=== PATIENT | male | born 1995 | race Two or more races ===

== ENCOUNTER 2020-08-26 00:18 | Emergency (ER) | payer OTHER, SELFPAY ==
[2020-08-26] VITALS (15 sets, daily range): BP systolic 123–147; BP diastolic 70–96; PULSE 73–136; RESP 15–20; TEMP 36.7–37.4; O2SAT 97–100; BMI 20.1
--- NOTE | 2020-08-26 00:28 | EKG12_ITS ---
Test Reason : [facility] [place] Blood Pressure : / mmHG Vent. Rate : 118 BPM Atrial Rate : 118 BPM P-R Int : 146 ms QRS Dur : 094 ms QT Int : 350 ms P-R-T Axes : 063 076 063 degrees QTc Int : 490 ms Sinus tachycardia Otherwise normal ECG Confirmed by LYNETTE POSADA, EKTA ([id number]), video editor MELINA LR ([id number]) on 08/30/2020 8:28:51 AM Referred By: BAKARI Confirmed By:EKTA OJEDA MD
[2020-08-26] MEDS: 0.9% Normal Saline 1,000 ML 999 ML IV ×2 (00:48→01:37)
[2020-08-26 00:59] LABS: Absolute Lymphocyte Count 0.54 X10^3/uL (0.83-4.51); Absolute Neutrophil Count 8.9 X10^3/uL (2.0-7.7); Basophil# 0.02 X10^3/uL; Basophil% 0.2 % (0-1); Hematocrit 53.4 % (40-54); Hemoglobin 17.5 g/dL (13.0-16.5); Lymphocyte # 0.54 X10^3/ul (0.83-4.51); Lymphocyte % 5.6 % (19-41); Mean Corp Hgb Conc 32.8 g/dL (32-36); Mean Corpuscular Hgb 29.4 pg (27.0-32.0); Mean Corpuscular Volume 89.7 fL (80-94); Mean Platelet Vol. 10.7 fl (6.2-12.0); Monocyte# 0.12 X10^3/uL; Monocyte% 1.3 % (0-10); NRBC Flagged by Analyzer 0 % (0-5); Neutrophil # 8.86 X10^3/uL (2.7-7.7); Neutrophil % 92.5 % (47-70); POSITIVE DIFFERENTIAL YES; Platelet Count 225 K/mm3 (150-450); RBC Distribution Width CV 11.6 % (11.6-14.6); RBC Distribution Width SD 38.1 fl (35.1-43.9); Red Blood Count 5.95 M/mm3 (4.6-6.2); White Blood Count 9.6 K/mm3 (4.4-11.0)
[2020-08-26 01:15] LABS: Differential Indicated SCAN CRITERIA MET
--- NOTE | 2020-08-26 01:15 | ED.VISSUMM ---
- ER Visit Summary Date of Service: 08/26/20 Chief Complaint: Intentional overdose History of Present Illness: The patient is a 25 M who presents after an intentional overdose of Benadryl. 9 hours prior to arrival he took 100, 25 mg tablets of Benadryl. He did this in an attempt to hurt himself. He has been having issues with things going on at college and this made him feel like he wanted to hurt himself. He has had previous attempts of trying to overdose. He denies any psychiatric admissions previously. He feels thirsty but no other symptoms. Denies any pain. Not see any psychiatric providers currently. Physical Examination: Vital signs reviewed. HEENT exam shows that his eyes are wide open. His pupils are 4 mm and equal. He has dry mucous membranes. Heart is tachycardic and regular rhythm without murmurs. Lungs are clear to auscultation. Abdomen is soft and nontender. Extremities reveal no edema. Skin exam normal. Neurologic exam shows he is alert and oriented in all spheres. His strength and sensation are equal. He is mildly tremulous. His ambulation is normal. Psychiatric exam reveals a patient that is depressed and does voice suicidal thoughts. He has having some mild visual hallucinations which is likely due to the medication overdose. Test Results: EKG was sinus tachycardia with a rate of 118. No ST changes. QTC is 490, OR 146, QRS 94. Laboratory studies are unremarkable aside for hemoglobin of 17.5 and a glucose of 118. Toxicology screen shows cannabinoids. Emergency Department Course and Treatment: The patient was discussed with poison control. They reviewed EKG findings which includes a possible QTC prolongation and QRS elongation. However the patient's QTC is borderline long but his QRS is normal. We will check his electrolytes per their recommendation. We will also hydrate the patient. They state that they would normally recommend observation for 6 hours but due to the amount ingested we will observe him here in the emergency department further. The patient was hydrated with normal saline. Repeat heart rate is 105. His mental status is clear and he does answer all questions appropriately. At this time the patient has been observed in the ER for approximately 4 hours. Its been 14 hours since his ingestion. I feel that at this time he is medically cleared for psychiatric evaluation. The patient was evaluated by crisis who feel the patient needs to be transferred for psychiatric evaluation. The patient will be pink slipped and he is currently pending transfer. Treatment Plan: [] Disposition: Pending transfer to psychiatric facility Impression: Intentional medication overdose, suicidal ideation This note was generated with [employer] dictation software. It may contain incorrect words, spelling, and punctuation that were not noted in review of the chart prior to signing ED Disposition - Plan for ED Patient: Referrals: Jony Malik MD [Primary Care Provider] -
[2020-08-26 01:22] LABS: AST(SGOT) 11 U/L (15-37); Alanine Aminotransfer ALT/SGPT 21 U/L (16-61); Alkaline Phosphatase 69 U/L (45-117); Anion Gap 13 (5-15); BUN 11 mg/dL (7-18); BUN/Creat Ratio 9.3 RATIO (10-20); Calcium,Total 9.6 mg/dL (8.5-10.1); Chloride 101 mmol/L (98-107); Creatinine, Serum 1.18 mg/dL (0.70-1.30); EST Glomerular Filtration Rate 81 mL/min (>60); Est Glom Filt Rate - Afr Amer 98 mL/min (>60); Estimated Creatinine Clearance 80.42 ml/min; Glucose 118 mg/dL (74-106); Potassium 3.8 mmol/L (3.5-5.1); Sodium Level 138 mmol/L (136-145)
[2020-08-26 01:29] LABS: Alcohol, Blood (Medical)-Serum < 3.0 mg/dL
--- NOTE | 2020-08-26 01:36 | ED.RN ---
not able to pee -- sitter in room and got a water for patient while this nurse stayed with him. Will try for urine once all IVF are in patint, if he cannot go on his own, before
--- NOTE | 2020-08-26 02:43 | ED.RN ---
Pt threw up a large amount of pink emesis. VS stable and no indication of aspiration
[2020-08-26 03:37] LABS: Amphetamine Urine VISTA NEGATIVE (<1000 ng/mL); Barbiturate Urine VISTA NEGATIVE (< 200 ng/mL); Benzodiazepine Urine VISTA NEGATIVE (< 200 ng/mL); Cocaine Urine VISTA NEGATIVE (< 300 ng/mL); Ecstacy Urine VISTA NEGATIVE (< 500 ng/mL); Methadone Urine VISTA NEGATIVE (< 300 ng/mL); PCP Urine VISTA NEGATIVE (< 25 ng/mL); THC Urine VISTA POSITIVE (< 50 ng/mL); Vista UDS pH Range 6
--- NOTE | 2020-08-26 05:20 | ED.RN ---
Poison control called and reviewed labs and patient with this nurse. He recommend we add a salicylate and acetominophen level to labs -- done, along with covid 19 rapid for admit
[2020-08-26 05:48] LABS: Salicylate < 1.7 mg/dL (2.8-20.0)
--- NOTE | 2020-08-26 05:57 | ED.RN ---
CRISIS CALLED AND PATIENT IS PENDING AT [facility]
[2020-08-26 06:19] LABS: Acetaminophen (Tylenol) Level < 2.0 ug/mL (10.0-30.0)
--- NOTE | 2020-08-26 07:58 | ED.RN ---
[facility] MATTHE[facility] CALLED AND REQUESTED THE COVID RESULTS TO BE FAXED TO THEM. ALSO REQUESTED THE POLICY NUMBER FOR THE PTS INSURANCE. WE DO NOT HAVE THAT. THE PT ALSO DOESN'T KNOW THIS INFORMATION. [facility] LAWRENCE STATED THEY WILL DECLINE THE PT SINCE WE DO NOT HAVE THIS CALLED AND NOTIFIED CRISIS OF THIS. [facility] DOES HAVE THE PTS POLICY NUMBER AND HAD SENT THIS TO [facility]ER[facility] ALREADY. TOBY FROM CRISIS STATED SHE WILL CALL THEM AGAIN AND MAKE SURE THEY HAVE IT.
--- NOTE | 2020-08-26 08:11 | ED.RN ---
[facility] LAWRENCE CALLED AND STATED THEY DID GET HIS POLICY NUMBER AND IT INITIALING WENT THROUGH, THEN [employer] WENT DOWN SO THEY ARE UNABLE TO VEIFY HIS INSURANCE AT THIS TIME. STATED THEY WILL KEEP TRYING. CRISIS NOTIFIED
== END 2020-08-26 12:45 ==
PROVIDERS: Emergency Provider Emergency Medicine; PCP Pediatrics
DX: T45.0X2A Poisoning by antiallergic and antiemetic drugs, intentional self-harm, initial encounter (principal)
CPT/HCPCS: 80053; 80307; 80329; 82077; 83735; 85025; 87426; 93005; 96360; 96361; 99285; J7030; A4216; G0480

== ENCOUNTER 2020-09-06 11:58 | Outpatient (RCR) | payer OTHER, SELFPAY ==
[2020-08-26 00:19] VITALS: BMI 20.1
== END 2020-10-11 23:59 ==
LOC: IMMUN 11:58
PROVIDERS: PCP Pediatrics; Referring Provider Family Medicine; Visit Provider Family Medicine
DX: Z23 Encounter for immunization (principal)
CPT/HCPCS: 0001A; 91300

== ENCOUNTER 2020-12-19 08:50 | Emergency (ER) | payer OTHER, SELFPAY ==
[2020-08-26 00:19] VITALS: BMI 20.1
[2020-12-19] VITALS (7 sets, daily range): BP systolic 113–114; BP diastolic 66–85; PULSE 76–94; RESP 15–18; TEMP 36.5; O2SAT 99; BMI 23.1
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
--- NOTE | 2020-12-19 09:05 | EKG12_ITS ---
Test Reason : Blood Pressure : / mmHG Vent. Rate : 078 BPM Atrial Rate : 078 BPM P-R Int : 178 ms QRS Dur : 092 ms QT Int : 354 ms P-R-T Axes : 052 085 069 degrees QTc Int : 403 ms Normal sinus rhythm with sinus arrhythmia ST-Segment Abnormality: Consider Early Repolarization Confirmed by LYNETTE POSADA, EKTA ([id number]), copy editor MELINA LR ([id number]) on 12/20/2020 10:12:36 AM Referred By: CHRISTOS Confirmed By:EKTA OJEDA MD
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
[2020-12-19 09:34] LABS: Absolute Lymphocyte Count 1.34 X10^3/uL (0.83-4.51); Absolute Neutrophil Count 1.9 X10^3/uL (2.0-7.7); Basophil# 0.02 X10^3/uL; Basophil% 0.5 % (0-1); Eosinophil# 0.06 X10^3/uL; Eosinophils% 1.6 % (0-5); Hematocrit 45.1 % (40-54); Hemoglobin 14.8 g/dL (13.0-16.5); Lymphocyte # 1.34 X10^3/ul (0.83-4.51); Lymphocyte % 35.9 % (19-41); Mean Corp Hgb Conc 32.8 g/dL (32-36); Mean Corpuscular Hgb 29.7 pg (27.0-32.0); Mean Corpuscular Volume 90.4 fL (80-94); Mean Platelet Vol. 11.1 fl (6.2-12.0); Monocyte# 0.36 X10^3/uL; Monocyte% 9.7 % (0-10); NRBC Flagged by Analyzer 0 % (0-5); Neutrophil # 1.94 X10^3/uL (2.7-7.7); Platelet Count 178 K/mm3 (150-450); RBC Distribution Width CV 11.9 % (11.6-14.6); RBC Distribution Width SD 38.9 fl (35.1-43.9); Red Blood Count 4.99 M/mm3 (4.6-6.2); White Blood Count 3.7 K/mm3 (4.4-11.0)
[2020-12-19 09:48] LABS: Amphetamine Urine VISTA NEGATIVE (<1000 ng/mL); Barbiturate Urine VISTA NEGATIVE (< 200 ng/mL); Benzodiazepine Urine VISTA NEGATIVE (< 200 ng/mL); Cocaine Urine VISTA NEGATIVE (< 300 ng/mL); Ecstacy Urine VISTA NEGATIVE (< 500 ng/mL); Methadone Urine VISTA NEGATIVE (< 300 ng/mL); PCP Urine VISTA NEGATIVE (< 25 ng/mL); THC Urine VISTA POSITIVE (< 50 ng/mL); Vista UDS pH Range 6
[2020-12-19 09:49] LABS: ALB/GLOB Ratio 1.4 RATIO (0.9-2.4); AST(SGOT) 28 U/L (15-37); Alanine Aminotransfer ALT/SGPT 69 U/L (16-61); Albumin, Serum 4.5 g/dL (3.2-5.0); Alkaline Phosphatase 55 U/L (45-117); Anion Gap 4 (5-15); BUN 15 mg/dL (7-18); BUN/Creat Ratio 16.7 RATIO (10-20); Calcium,Total 8.6 mg/dL (8.5-10.1); Chloride 106 mmol/L (98-107); EST Glomerular Filtration Rate 111 mL/min (>60); Est Glom Filt Rate - Afr Amer 134 mL/min (>60); Globulin 3.3 g/dL (2.2-4.2); Glucose 95 mg/dL (74-106); Potassium 3.5 mmol/L (3.5-5.1); Protein, Total 7.8 g/dL (6.4-8.2); Sodium Level 140 mmol/L (136-145)
[2020-12-19 09:54] LABS: Alcohol, Blood (Medical)-Serum < 3.0 mg/dL
--- NOTE | 2020-12-19 11:29 | BH.SGPN.TEST ---
Group Topic: [] # of Participants: [] Goal of Group: [] Staff Interventions: []
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
--- NOTE | 2020-12-19 12:40 | CM.ED ---
Addendum entered by Taty Ford 12/19/20 16:05: CHETAN received call from Sharmaine at [facility]. They can accept. She said that patient is going to the Adult unit. She said that the accepting MD is Arian. Cashier Gambling will arrange transport. Per [facility], patient will need to arrive at facility after 6pm. Patient was updated with plan for inpatient psych at [facility]. SW remains available if needs arise. mortgage branch manager and MD updated. Plan: [facility] Original Note: CHETAN Note SW made referral to [facility]. CHETAN faxed referral information to [facility]. [facility] has open beds this early afternoon. Plan: Inpatient psych [facility]
--- NOTE | 2020-12-19 15:32 | NURSING ---
CALLED [facility] TO BE HERE ABOUT 1715. [facility] REPLIED THEY CAN NOT GUARENTEE THAT TIME SINCE THEY ARE COMING OUT OF ER.
== END 2020-12-19 17:40 ==
PROVIDERS: Emergency Provider Emergency Medicine; PCP Pediatrics
DX: F32.9 Major depressive disorder, single episode, unspecified (principal); R45.851 Suicidal ideations; Z79.899 Other long term (current) drug therapy; F17.290 Nicotine dependence, other tobacco product, uncomplicated
CPT/HCPCS: 80053; 80307; 82077; 85025; 87426; 93005; 99283